=== PATIENT | male | born 1960 | race Caucasian/White ===

== ENCOUNTER 2020-07-14 15:16 | Emergency (ER) | payer OTHER ==
[~2020-07-14] VITALS: Ht 172.7 cm; Wt 86.2 kg
--- NOTE | 2020-07-15 13:54 | EKG ---
[facility] [address] [place], [place] [address] Signed Sinus tachycardia Inferior infarct , age undetermined Abnormal ECG No previous ECGs available Confirmed by TALIA ANGELO DO ([id number]) on 07/15/2020 1:53:38 PM Electronically Signed By: TALIA ANGELO DO 07/15/20 1354 PATIENT NAME: KARLEE ROONEY Electrocardiogram DATE OF : 64 PHYSICIAN: TALIA ANGELO DO REPORT #: [id number] REPORT IS CONFIDENTIAL AND NOT TO BE RELEASED WITHOUT AUTHORIZATION
== END 2020-07-14 19:04 | disposition short-term general hospital (02) ==
LOC: ED 15:16
DX: I50.9 Heart failure, unspecified (principal); R77.8 Other specified abnormalities of plasma proteins; Z88.0 Allergy status to penicillin; Z88.1 Allergy status to other antibiotic agents; Z20.822 Contact with and (suspected) exposure to COVID-19
CPT/HCPCS: 71045; 80053; 83735; 83880; 84484; 85025; 93005; 93010; 99285-25; U0003

== ENCOUNTER 2020-07-17 09:50 | Inpatient (IN) | payer OTHER ==
[~2020-07-17] VITALS: Ht 172.7 cm; Wt 92.0 kg
--- OUTSIDE RECORDS SUMMARY | 2020-07-17 09:52 | XMS ---
PreManage Notification: KARLEE ROONEY Security [employer] Events 1 event(s) in the past 18 months Most recent security events: Elopement at [facility] 07/14/2020 15:17 - Patient eloped before treatment completed. - Patient with suicidal and/or homicidal ideations eloped. - Patient eloped with IV in place. Details: PATIENT LEFT AMA. CRITERIA MET - [facility] - 2 Visits in 30 Days CARE PROVIDERS There are no care providers on record at this time. Main has no Care Guidelines for this patient. [facility]. VISIT COUNT (12 MO.) 2 [facility] H. TOTAL 2 NOTE: Visits indicate total known visits. ED/UCC VISIT TRACKING (12 MO.) 07/17/2020 09:50 [facility] TYPE: Emergency COMPLAINT: - SOB 07/14/2020 15:17 [facility] TYPE: Emergency COMPLAINT: - SOB DIAGNOSES: - Heart failure, unspecified - Other specified abnormalities of plasma proteins - Allergy status to other antibiotic agents - Allergy status to penicillin - Shortness of breath INPATIENT VISIT TRACKING (12 MO.) No inpatient visits to display in this time frame [email or web address]
--- NOTE | 2020-07-17 13:50 | NUR ---
PATIENT REPORT FROM CHANA CABRERA INCLUDED: pt was DX with CHF 3 days ago, came in today to get written "clearance" to drive back to work to [place] (he is a cdl dedicated truck driver). pt was unable to maintain o2sats >90% on RA and was later DX with bilateral P.E.s. pt has no other medical hx. pt has been alert and oriented since arrival.
--- NOTE | 2020-07-17 14:07 | NUR ---
LAB CALLED TO CHECK ON COVID TEST Lab reports that Covid test will take another 22 more mins. ED called, Eva CABRERA notified. ED is not busy, acceptable time to wait to bring pt back at this time. pt stable.
--- NOTE | 2020-07-17 14:40 | NUR ---
PATIENT BROUGHT TO THE FLOOR AT THIS TIME pt brought to the floor by Sofiya WALKER and charge nurse Khloe CABRERA. pt alert and oriented x4, cooperative with cares. pt able to stand and walk, transferring himself to the bed. pt assessment complete, BP elevated still at 141/107, HR 98, RR 20, o2sat 96% on 2L NC, and afebrile at this time. pt denies pain, nausea, dizziness, and SOB, but reports that he has been having SOB with exertion for the last few days. pt reports minimal health HX, with only his recent CHF and PEs as current illnesses. pt ordered dinner and breakfast. pt given fresh water, warm blankets, and side table with personal items on it. pt oriented to unit and room. Imaging to the bedside for echo at this time. table and call light in reach.
--- NOTE | 2020-07-17 15:41 | NUR ---
ROUNDING imaging at bedside with pt at this time. echo still being done. table and call light in reach.
--- NOTE | 2020-07-17 16:00 | NUR ---
VITALS (TO REASSESS FOR HYPERTENSION) + O2 TITRATION pt had hypertension when he first arrived to the hospital and to the floor. pts VSS at this time. pts o2sats >96% on 2L NC at this time. pts oxygen titrated down to 1L NC, and pt able to maintain o2sats >94% on 1L NC at this time. pt left on 1L NC. pt encouraged to call us with any changes, concerns, questions, SOB, increased work of breathing, etc... pt verbalized understanding. pt anticipating dinner.
--- NOTE | 2020-07-17 17:15 | NUR ---
ROUNDING + SPOT CHECK O2 SATS pt eating dinner, sitting up in bed, fowlers position. pt denies pain, nausea, and SOB at this time. pt p2sats 95% on 1L NC. spoke to Respiratory therapists and they recommended keeping her on 2L NC, despite maintaining saturations over 95% on 1L NC. Charge nurse Khloe CABRERA agrees. pt titrated to 2L NC and o2sats at 96% at this time. pt requested a more comfortable bed, an egg crate foam pad was placed on his bed under the sheets at this time. pt able to stand at bedside (by choice, he didn't sit in the chair provided) and denies SOB. pt back to bed, table and call light in reach.
--- NOTE | 2020-07-17 19:00 | NUR ---
SHIFT REPORT RECEIVED FROM KELLEYSDDEON STEVENSON AT BEDSIDE. pt AWAKE AND RESTING IN BED, 2LNC IN PLACE, DENIES NEEDS. CALL LIGHT IN REACH.
--- NOTE | 2020-07-17 21:58 | NUR ---
IN ROOM TO ADMINISTER MEDICATIONS FOR PRIMARY RN ANKUR. PT RATES PAIN AT 8/10. WE DISCUSSED GETING HER ON PO PAIN MEDS. PT AGREED TO HAVE IV DILAUDID AT THIS TIME TO GET HER PAIN UNDER CONTROL AND TAKE THE PO NORCO A LITTLE LATER TO KEEP HER PAIN UNDER CONTROL. PROVIDED PT WITH A FAN AND ADMINISTERED HER EVENING MEDICATIONS ALONG WITH 1MG IV DILAUDID. PT DENIES FURTHER NEEDS AT THIS TIME. CALL LIGHT IS CLOSE.
--- NOTE | 2020-07-17 22:10 | NUR ---
IN TO GET VITALS, URINAL EMPTIED AT THIS TIME, NO FURTHER NEEDS AT THIS TIME
--- NOTE | 2020-07-17 22:45 | NUR ---
ASSESSMENT COMPLETE, SCHEDULED MED GIVEN (SEE EMAR). VSS, pt QUIET, BUT A/OX4. 2LNC IN PLACE, pt HERE FOR BILATERAL PE. pt CURRENTLY DENIES CHEST PAIN AND SOB, WILL MONITOR. REPORTS SOME COUGHING, WILL MONITOR. NO DISTRESS NOTED. CALL LIGHT IN REACH.
--- NOTE | 2020-07-18 00:10 | NUR ---
pt RESTING IN BED WITH EYES CLOSED, RR EVEN AND UNLABORED. NO DISTRESS NOTED, 2LNC REMAINS IN PLACE. CALL LIGHT IN REACH.
--- NOTE | 2020-07-18 02:12 | NUR ---
IN TO GET VITALS, PT DENIES NEED TO VOID AT THIS TIME, NO FURTHER NEEDS
--- NOTE | 2020-07-18 02:15 | NUR ---
ASSESSMENT COMPLETE, NO NEW CHANGES OR CONCERNS. VSS, pt DENIES SOB AND CHEST PAIN. DENIES NEED TO VOID, CALL LIGHT IN REACH. BOARD UPDATED.
--- NOTE | 2020-07-18 06:05 | NUR ---
IN TO GET VITALS, DAILY WT, PT UP TO VOID, 250MLs DARK CITLALLI URINE, RN INFORMED AT THIS TIME, PT DENIES NEEDING FRESH WATER, PT STILL HAD FULL CUP OF WATER AT THIS TIME
--- NOTE | 2020-07-18 06:10 | NUR ---
pt AWAKE AND RESTING IN BED, 2LNC IN PLACE. OIL REFINERY OPERATOR RD COLLECTING AM VS AND I&O'S. NO DISTRESS NOTED, CALL LIGHT IN REACH.
--- NOTE | 2020-07-18 07:30 | NUR ---
SHIFT REPORT FROM LJ CABRERA INCLUDED: pt had an uneventful evening. pt alert and oriented, cooperative with evening cares. pt denied pain, nausea, SOB through the evening. pt had taken his oxygen off this morning, as we entered we spot checked him and his o2sats were at 93% on RA. pts NC replaced and pt saturations >94% on 2L NC. pt in bed, table and call light in reach.
--- NOTE | 2020-07-18 09:00 | NUR ---
MED PASS + ASSESSMENT pt assessment done at this time. VSS. pts BP WNL. pt denies SOB, pain, dizziness, and nausea at this time. pt able to ambulate around room and into bathroom with minimal SOB. pt still on 2L NC at this time, though saturations maintain >92% on RA, per respiratory therpy. pt able to eat breakfast. pt able to take all meds (meds given this morning by [facility] Student Nurse). pt able to get all meds without difficulty. pt denies further needs at this time. table and call light in reach.
--- NOTE | 2020-07-18 10:35 | NUR ---
ROUNDING pt visiting with MD at this time, call light in reach.
[2020-07-18] MEDS ORDERED: ELIQUIS5 MG PO (10:46)
--- NOTE | 2020-07-18 12:00 | NUR ---
ROUNDING pt sitting up in bed, having lunch at this time. pt denies pain, nausea, and SOB at this time. pt given fresh water. pt denies needs. table and call light within reach.
--- NOTE | 2020-07-18 12:04 | EKG ---
[facility] [address] [place], [place] [address] Signed Normal sinus rhythm Possible Left atrial enlargement Anterior infarct , age undetermined Abnormal ECG When compared with ECG of 14-JUL-2020 17:22, No significant change was found Confirmed by TALIA ANGELO DO ([id number]) on 07/18/2020 12:04:24 PM Electronically Signed By: TALIA ANGELO DO 07/18/20 1204 PATIENT NAME: KARLEE ROONEY Electrocardiogram DATE OF : 64 PHYSICIAN: TALIA ANGELO DO REPORT #: [id number] REPORT IS CONFIDENTIAL AND NOT TO BE RELEASED WITHOUT AUTHORIZATION
--- NOTE | 2020-07-18 13:08 | NUR ---
SPOKE TO MD ABOUT PATIENTS COUGH pt has persistent dry cough, and requests something else. Dr Beyer informed and gave [id number] orders for 5mls of Robitussin with codeine.
--- NOTE | 2020-07-18 13:35 | NUR ---
PATIENT AWAKE IN BED, TV REMOTE FROM CABINET NEAR NURSES STATION PROVIDED PER JASMINA. VITALS AND I&OS CHARTED. RN JUAN FRANCISCO IN ROOM TO SEE PATIENT. RN AWARE OF B/P. CLEAN GOWN AND BLANKET PROVIDED. CALL LIGHT AND PERSONAL ITEMS CLOSE BY
--- NOTE | 2020-07-18 14:15 | NUR ---
ROUNDING pt reports that his cough isn't much better. pt encouraged to drink something warm by Mary ROBISON. pt given hot tea set up and encouraged to breath in the steam from the mug to calm his throat and lungs. pt happy to have some tea. pt denies further needs at this time. table and call light in reach.
--- NOTE | 2020-07-18 15:00 | NUR ---
MED PASS + ASSESSMENT pt assessment complete, VSS. pt reports 5/10 pain in his head "with all the coughing". pt encouraged to take some tylenol that he has ordered PRN, pt refused meds at this time. pt denies nausea and SOB. pt o2sats 93% on RA at this time. pts cough still present but seems less than before taking the cough medicine with codeine. pt given fresh water. pt denies further needs at this time. table and call light in reach.
--- NOTE | 2020-07-18 16:15 | NUR ---
ROUNDING pt sitting up in bed watching tv at this time. pt denies pain and SOB, but reports that he feels "the cough meds don't seem to be helping even a little". pt is coughing slightly less frequently than earlier this afternoon, but still 1-2 coughing fits a minute. pts o2sats >95% on RA, RR 24. pt denies other needs at this time.
--- NOTE | 2020-07-18 17:00 | NUR ---
ROUNDING + CHECK TEMP AGAIN Student nurse reported that pts temp was 100.6 temporal. this RN to the room at this time to assess pt and check vitals again. pts temp at this time is 99.5 oral. pt seems to have a very slightly increased work of breathing, RR 24, o2sats 95% on RA. pt denies nausea and dizziness at this time, but reports 5/10 headache still from the coughing. pt refuses tylenol med at this time. pt in bed, table and call light in reach.
--- NOTE | 2020-07-18 17:55 | NUR ---
ROUNDING + CHECK TEMP AGAIN pts temp was elevated earlier, so temp retaken at this time. Current temp is 98.8 oral. pt seems to have a very slightly increased work of breathing, RR 24, o2sats 95% on RA. pt denies nausea and dizziness at this time, but reports 5/10 headache still from the coughing. pt refuses tylenol med at this time. pt in bed, table and call light in reach. pt educated to call with any changes in breathing, increased anxiety or work of breathing, chest pain, dizziness, or other concerns. pt verbalized understanding at this time.
--- NOTE | 2020-07-18 18:15 | NUR ---
MD CALLED AT THIS TIME Dr Beyer informed of pts elevated temp and trend this afternoon.
--- NOTE | 2020-07-18 18:24 | NUR ---
PATIENT IN BED RESTING. DINNER ON BEDSIDE TABLE. CALL LIGHT IN REACH. NO FURTHER NEEDS AT THIS TIME. CLOTHES MARKER DID VITALS.
--- NOTE | 2020-07-18 20:01 | NUR ---
IN WITH RN TO GET VITALS, PT DENIES NEED TO VOID AT THIS TIME, RN AWARE, PT DECLINES WATER REFILL AT THIS TIME
--- NOTE | 2020-07-18 20:52 | NUR ---
PATIENT COUGHING AND FRUSTRATED THAT HE CAN'T STOP. THIS RN TRIED TO GET THE PATIENT TO TAKE SOME COGH MEDICATION, BUT HE SAID,"NONE OF THAT IS WORKING AND I'M NOT INTERESTED IN TAKING STUFF THAT DON'T WORK." LET PATIENT KNOW IT WAS AVAILABLE IF HE CHANGED HIS MIND. PATIENT IS WITH DRAWN AND NO VERY CONVERSIVE. WAS OFFERED NEW ICE WATER, BUT PATIENT DECLINED. PATIENT HAD NO OTHER CARE NEEDS AT THIS TIME. CALL LIGHT IS IN REACH.
--- NOTE | 2020-07-18 22:08 | NUR ---
PATIENT RESTING ON HIS RIGHT SIDE, RESPIRATIONS REGULAR AND EVEN, CALL LIGHT IS IN REACH.
--- NOTE | 2020-07-19 00:15 | NUR ---
PATIENT RESTING QUIETLY ON HIS LEFT SIDE, RESPIRATIONS REGULAR AND EVEN, EYES CLOSED, CALL LIGHT IN REACH.
--- NOTE | 2020-07-19 02:30 | NUR ---
PATIENT SUPINE NOW, EYES CLOSED, RESPIRATIONS REGULAR AND EVEN, CALL LIGHT IN REACH.
--- NOTE | 2020-07-19 04:31 | NUR ---
PATIENT TURNING FROM HIS LEFT SIDE TO HIS RIGHT SIDE AND PATIENT SAID HE VOIDED ONCE. PATIENT HAD NO OTHER NEEDS AND NOT REALLY CONVERSIVE. CALL LIGHT IS IN REACH.
--- NOTE | 2020-07-19 06:00 | NUR ---
PATIENT RESTED WELL THROUGH THE NIGHT AND REMAINS ON RA. LUNGS SOUND CLEAR. CARE NEEDS TAKEN CARE OF BY AARON SULTANA. PATIENT REMAINS TO BE VERY NON-CONVERSIVE WITH MAINLY YES AND NO ANSWERS. CALL LIGHT IS IN REACH.
--- NOTE | 2020-07-19 06:00 | NUR ---
IN TO GET VITALS, URINAL EMPTIED AT THIS TIME, ICE WATER REFILLED, NO FURTHER NEEDS AT THIS TIME
--- NOTE | 2020-07-19 07:23 | NUR ---
REPORT RECEIVED. PT RESTING EYES CLOSED LEFT UNDISTURBED
--- NOTE | 2020-07-19 08:26 | NUR ---
PT SITTING UP IN BED WATCHING TV. EATS 100% OF MORNING MEAL. DENIES DISCOMFORTS OR NEEDS OF.
--- NOTE | 2020-07-19 10:46 | NUR ---
PER SUPERVISORS OK, SECURITY WHEELED PATIENT TO PERSONAL TRUCK IN PARKING LOT FOR CLEAN CLOTHES. PATIENT NOW IN SHOWER, WILL CALL IF ASSISTANCE IS NEEDED. LINENS CHANGED. NO OTHER NEEDS
--- NOTE | 2020-07-19 11:05 | NUR ---
DR ANGELO IN TO SEE PT DISCUSSES PLANS GOING FORWARD. UNDERSTANDING VERBALIZED BY PT, NO QUESTIONS.
--- NOTE | 2020-07-19 12:29 | NUR ---
PT BACK FROM THE SHOWER STATES HE WAS QUITE SOB WITH THE ACTIVITY. RECOVERS QUICKLY RESTING IN BED WATCHING TV NOW. PT C/O TOMAS OFFERED TYLENOL HE REFUSES. DENIES ANY REQUESTS STATES HE IS NOT INTERESTED IN LUNCH
--- NOTE | 2020-07-19 14:06 | NUR ---
VITALS AND I&OS CHARTED. PATIENT REFUSED LUNCH. CALL LIGHT AND PERSONAL ITEMS WITHIN REACH
--- NOTE | 2020-07-19 14:49 | NUR ---
PT RESTING IN BED USING ELECTRONICS WATCHING TV. QUIET COOPERATIVE. STILL HAS A TOMAS STILL REFUSES TYLENOL STATING IT DOESN'T DO ANYTHING FOR ME. NORMALLY USES IBUPORFEN WILL REQUEST MED CHANGE FROM .
--- NOTE | 2020-07-19 16:24 | NUR ---
ICE PACK PROVIDED FOR ASSIST WITH HEAD ACHE. PT CONTINUES PLAYING GAMES ON HIS PHONE AND WATCHING TV. EVENING MEAL ORDERED
--- NOTE | 2020-07-19 19:31 | NUR ---
PATIENT RESTING IN BED WATCHING TV. PATIENT HAS NO CURRENT CARE NEEDS. CALL LIGHT IS IN REACH.
--- NOTE | 2020-07-19 20:43 | NUR ---
PATIENT SITTING IN BED ON HIS PHONE AND WATCHING TV. NEW ICE WATER GIVE, FRUIT PLATE GIVEN, AND URINAL EMPTIED. I ASKED HOW PATIENT'S DAY WAS AND HE SAID, "PEACHY!!!" PATIENT COUGHS MORE WHEN COUGHING KEEPING THE CONVERSATION TO A MINIMUM. PATIENT'S LUNG ARE CLEAR AND BOWEL TONES ARE ACTIVE. CALL LIGHT IS IN REACH.
--- NOTE | 2020-07-19 22:04 | NUR ---
PATIENT HAS REFUSED ALL MEDICATIONS FOR COUGH THIS EVENING.
--- NOTE | 2020-07-20 00:10 | NUR ---
PATIENT RESTING QUIETLY ON HIS RIGHT SIDE, RESPIRATIONS REGULAR AND EVEN, CALL LIGHT IS IN REACH.
--- NOTE | 2020-07-20 01:08 | NUR ---
PATIENT RESTING QUIETLY SUPINE, EYES CLOSED, RESPIRATIONS REGULAR AND EVEN, CALL LIGHT IN REACH.
--- NOTE | 2020-07-20 03:31 | NUR ---
PATIENT RESTING ON HIS RIGHT SIDE, RESPIRATIONS REGULAR AND EVEN, CALL LIGHT IS IN REACH.
--- NOTE | 2020-07-20 05:45 | NUR ---
IN WITH RN TO GET VITALS, EMPTIED URINAL, PT DECLINED REFRESHED WATER AT THIS TIME, NO FURTHER NEEDS
--- NOTE | 2020-07-20 05:52 | NUR ---
PATIENT HAS SLEPT MOST OF THE NIGHT. PATIENT HAD A HEADACHE UNRELIEVED BY TYLENOL AND PATIENT DID NOT WANT TO TAKE ANY MORE. PATIENT ALSO REFUSED ALL COUGH MEDICATIONS THAT WERE ENCOURAGED WELL. PATIENT'S TOMAS HAS RESOLVED AFTER SLEEPING. PATIENT VOIDING QUANTITY SUFFICIENT URINE. LUNGS REMAIN CLEAR WITH O2 SATS IN THE MID 90'S ON RA. PATIENT DID NOT DRINK ANY WATER AFTER WATER REFILLED AT THE START OF THE SHIFT. PATIENT VERY PRIVATE AND HAS ASKED TO KEEP DOOR AND CURTAIN CLOSED. PATIENT'S CALL LIGHT IS IN REACH.
--- NOTE | 2020-07-20 07:43 | NUR ---
PT RESTING IN BED WATCHING TV AGREES HEADACHE FROM YESTERDAY IS RESOLVED. AGREES SOB IS DECREASING WITH ACTIVITY. FRESH H20 AT BEDSIODE CALL LIGHT IN REACH.
--- NOTE | 2020-07-20 09:45 | NUR ---
Pt states he lives in [facility]. 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 Discussed the Dr. is no willing to release him to drive at this time due to his embolism Pt states he is independent and does not use dme. Denies friends or family he would list as contacts. He does give his boss's name Shaheen Serrano [phone]. He states he was in the , but has never signed up for [employer]. Pt not forthcoming with information. We discussed options for warfarin or eliquis. Pt originally requests warfarin, buth changed his mind to Eloquis as he believe he can dc sooner. Pt states he can dc to his truck as it is self contained. Discussed my concern he will leave without proper medication and with out a release to drive. Pt stating he just really needs to leave. Will discuss plan with
--- NOTE | 2020-07-20 10:10 | NUR ---
PATIENT SITTING UP IN BED WATCHING TV. VITALS CHARTED BY RN. CALL LIGHT IN REACH. NO FURTHER NEEDS AT THIS TIME.
--- NOTE | 2020-07-20 10:15 | NUR ---
REturned and spoke with pt after speaking with and Pharmacist. Assisted pt with site for free Eloquis coupon. Pt will fill out and we can go from there for medication. Dr. Lopez will visit with pt about plan for discharge and driving. She will not release him to drive due to his PES.
--- NOTE | 2020-07-20 11:12 | NUR ---
DR MAI IN TO SEE PT DISCUSSES PLANS GOING FORWARD, DC, HEALTH CONCERNS. ALL QUESTIONS ANSWERED FOR PT. PT CONTINUES UP IN BED WATCHING TV AT THIS TIME. BREATHING EVEN AND UNLABORED DENIES DISCOMFORTS OR NEEDS OF.
--- NOTE | 2020-07-20 13:21 | NUR ---
PT C/O HIS "COUGHING STARTING EARLY TODAY" AGREES HIS HEAD IS STARTING TO HURT A LITTLE. ENCOURAGED PT TO TAKE TYLENOL WELL ROBITUSSIN TO REDUCE SYMPTOMS. PT FINALLY AGREES MEDS ADMINISTERED.
--- NOTE | 2020-07-20 14:00 | NUR ---
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 He cont. to want to dc as soon as possible as he wants to haul his load to [place]. Again discussed he is not cleared to drive as there is risk embolism moving. We discussed walk in clinics and he is aware of PFM and I notified him there is also a clinic here at the hospital he can come into if needed. Discussed need to return to the ER for any emergency situation and he states understanding.
--- NOTE | 2020-07-20 15:32 | NUR ---
PT CONTINUES TO COUGH AND HAVE A "BIT" OF A HEADACHE. AGREES IT IS MUCH IMPROVED FROM YESTERDAY AND EVEN EARLIER TODAY.
--- NOTE | 2020-07-20 18:03 | NUR ---
PATIENT IN BED WATCHING TV. FRESH WATER CIVEN. VITALS AND I&O'S CHARTED. CALL LIGHT IN REACH. NO FURTHER NEEDS AT THIS TIME.
--- NOTE | 2020-07-20 19:38 | NUR ---
REPORT RECEIVED FROM DAY SHIFT RN. PT LYING IN BED ALERT AND ORIENTED. DENIES NEEDS AT THIS TIME. WHITE BOARD UPDATED. CALL LIGHT IN REACH.
--- NOTE | 2020-07-20 20:45 | NUR ---
EVENING ASSESSMENT COMPLETE. SCHEDULED MEDS ADMINISTERED PER EMAR. PRN ADMINISTERED FOR C/O HEADACHE AND PERSISTENT DRY COUGH. LUNGS CLEAR. RESPIRATIONS EVEN. VSS. DENIES QUESTIONS OR CONCERNS. CALL LIGHT IN REACH.
--- NOTE | 2020-07-21 00:05 | NUR ---
PT LYING ON RIGHT SIDE WITH EYES CLOSED. RESPIRATIONS EVEN AND UNLABORED. CALL LIGHT IN REACH.
--- NOTE | 2020-07-21 02:21 | NUR ---
PT RESTING IN BED WITH EYES CLOSED, NAD.
--- NOTE | 2020-07-21 06:09 | NUR ---
ASSESSMENT COMPLETE. VS WNL. PT DENIES SOB OR CHEST PAIN. PRN ADMINISTERED FOR PERSISTENT DRY HACKING COUGH. SpO2 95% ON RA. RESPIRATIONS EVEN. PT USING IS APPROPRIATELY. COFFEE AND FRESH WATER PROVIDED. DENIES FURTHER NEEDS. CALL LIGHT IN REACH.
--- NOTE | 2020-07-21 07:53 | NUR ---
this rn received report from pati meeks. when asked how his chest pain was doing pt stated "it feels like i have a 90 lb brick on my chest" pt states that this began about an hour ago, after lab was in to draw blood. pati meeks to take vitals, this rn had hospital receiving clerk sho riley md and do a ekg. pt informed of what was going on. pt states that pressure doen't go away with deep breaths.
--- NOTE | 2020-07-21 09:10 | NUR ---
THIS RN IN PTS ROOM WITH [facility] FARM MACHINE TENDER TO GIVE PT HIS MORNING MEDS. PT STATES THAT HE IS FEELING BIT BETTER AFTER THIS AM'S CHEST PRESSURE.
[2020-07-21] MEDS ORDERED: LISINOPRIL5 MG PO (09:43)
--- NOTE | 2020-07-21 10:00 | NUR ---
Spoke with Shaheen. States he is ok, dressed lying in bed. Denies sob or pain. Plans on discharging today and will stay in the area for 1 week in his self contained truck or until a relief explosives truck driver arrives. Plans on picking up his rx from [facility] today and paying out of pocket. We attempted yesterday, to get a coupon for 10.00 eliquis but he did not qualify. Notified I will get him a courtesy taxi ride to [facility] to bead picker his RX. Pt states he will take an Uber, notified there is not an Uber in town. Business Systems Administrator was notified and brought taxi ticket for round trip to [facility] and back to his truck. Discussed if there are any more needs and pt denies. States he has enough food and beverages in his truck. DC today with plan to remain in the area as he is not cleared to drive at this time.
--- NOTE | 2020-07-22 13:17 | EKG ---
[facility] [address] [place] [address] Signed Normal sinus rhythm Incomplete left bundle branch block Prolonged QT Abnormal ECG When compared with ECG of 17-JUL-2020 10:04, No significant change was found Confirmed by TATIANA MAI MD ([id number]) on 07/22/2020 1:16:42 PM Electronically Signed By: TATIANA MAI MD 07/22/20 1317 PATIENT NAME: KARLEE ROONEY Electrocardiogram DATE OF : 64 PHYSICIAN: TATIANA MAI MD REPORT #: [id number] REPORT IS CONFIDENTIAL AND NOT TO BE RELEASED WITHOUT AUTHORIZATION
== END 2020-07-21 11:19 | disposition home or self-care (01) | DRG 175 ==
LOC: ED 09:50 → MS 13:08
PROVIDERS: ADMIT Student in an Organized Health Care Education/Training Program; ATTEND Student in an Organized Health Care Education/Training Program
DX: I26.99 Other pulmonary embolism without acute cor pulmonale (principal); J96.01 Acute respiratory failure with hypoxia; Z20.822 Contact with and (suspected) exposure to COVID-19; I10 Essential (primary) hypertension; R74.01 Elevation of levels of liver transaminase levels; Z66 Do not resuscitate; Z88.0 Allergy status to penicillin; Z88.1 Allergy status to other antibiotic agents
CPT/HCPCS: 36415; 71045; 71260; 80053; 80074; 83880; 84484; 85025; 85379; 85610; 93005; 93010; 93306; 94760; 99285-25; C9803; J1650; J1940; Q9967; U0003